=== PATIENT | female | born 2000 | race Caucasian/White ===

== ENCOUNTER 2021-12-09 18:59 | Emergency (ER) | payer OTHER ==
[~2021-12-09] VITALS: Ht 175.3 cm; Wt 70.3 kg
[2021-12-09] MEDS ORDERED: VAGINAL ITCH CR30 GM VAG (21:16)
== END 2021-12-09 21:23 | disposition home or self-care (01) ==
LOC: ER 18:59
DX: N93.9 Abnormal uterine and vaginal bleeding, unspecified (principal); N39.0 Urinary tract infection, site not specified